=== PATIENT | male | born 1945 | race African-American/Black ===

== ENCOUNTER 2020-08-16 11:28 | Observation (INO) | payer MEDICARE, OTHER ==
--- NOTE | 2020-08-16 12:00 | RAD ---
EXAM: CHEST TWO VIEWS 08/16/2020 11:58 AM HISTORY: Intermittent chest pain COMPARISON: None. FINDINGS: Lungs: No acute airspace consolidation. Heart: Normal in size and contour. Pulmonary Vessels: Normal. Costophrenic Angles: Clear. Pneumothorax: None. Osseous Structures: Intact. Additional Findings: None. IMPRESSION: No significant acute intrathoracic disease.
[2020-08-16 12:40] LABS: #Lymphocytes 2.1 thou/uL (1.20-3.40); #Monocytes 0.7 thou/uL (0.11-0.59); #Neutrophils 4.3 thou/uL (1.40-6.50); %Basophils 0.4 % (0.0-1.0); %Eosinophils 0.3 % (0.0-10.0); %Lymphocytes 29.6 % (21.0-51.0); %Monocytes 9.2 % (0.0-10.0); %Neutrophils 60.6 % (42.0-75.0); Hemoglobin 14.6 g/dL (14.0-18.0); Mean Corpuscular HGB CONC 33.5 g/dL (32.0-36.0); Mean Corpuscular Hemoglobin 28.9 pg (27.0-31.0); Mean Corpuscular Volume 86.4 fL (78.0-98.0); Mean Platelet Volume 10.7 fL (7.4-10.4); Platelet Count 199 thou/uL (130-400); RBC Distribution Width 12.4 % (11.5-14.5); Red Blood Cell (RBC) Count 5.04 mill/uL (4.70-6.10); White Blood Cell (WBC) Count 7.1 thou/uL (4.8-10.8)
[2020-08-16] MEDS ORDERED: Aspirin Chewable 81 MG TAB ONE (14:13)
[2020-08-16] MEDS ORDERED: Nitroglycerin 2% Ointment 1 INCH/1 GM Packet ONE (14:13)
[2020-08-16 17:14] LABS: ALT (SGPT) 49 U/L (8-55); AST (SGOT) 72 U/L (5-34); Albumin 4.6 g/dL (3.4-4.8); Alkaline Phosphatase 87 U/L (40-110); Anion Gap 18 mmol/L (10-20); BUN (Urea Nitrogen) 21 mg/dL (8.4-25.7); Bilirubin, Total 0.6 mg/dL (0.2-1.2); Calc. Creatinine Clearance 0 mL/min (70-130); Calcium 9.6 mg/dL (7.8-10.44); Carbon Dioxide 21 mmol/L (23-31); Chloride 106 mmol/L (98-107); Globulin 5.3 g/dL (2.4-3.5); Glucose 206 mg/dL (83-110); Protein, Total 9.9 g/dL (5.8-8.1); Sodium 138 mmol/L (136-145)
[2020-08-16 17:19] LABS: Potassium 6.7 mmol/L (3.5-5.1)
[2020-08-16] MEDS ORDERED: Insulin Regular 300 UNITS/3 ML VIAL ONE (17:40)
[2020-08-16] MEDS ORDERED: Calcium Gluc 4.6 MEQ/10 ML (100 MG/ML) ONE (17:40)
[2020-08-16] MEDS ORDERED: Amlodipine 5 MG TAB ONE (17:40)
[2020-08-16] MEDS ORDERED: Sodium Bicarb 50 MEQ/50 ML Abboject 8.4% SYRINGE ONE (17:40)
[2020-08-16] MEDS ORDERED: Dextrose 50% Abboject 50 ML SYRINGE ONE (17:40)
[2020-08-16] MEDS ORDERED: Losartan 25 MG TAB PO SCH (17:45)
[2020-08-16] MEDS ORDERED: Atorvastatin Calcium 20 MG TAB PO SCH (18:00)
[2020-08-16] MEDS ORDERED: glipiZIDE 5 MG TAB PO SCH (18:00)
--- NOTE | 2020-08-16 18:18 | PDOC.HHP ---
Hospitalist HPI - History of Present Illness Chest pain History of Present Illness: PCP: Dr. Gonzalez The patient is a 75-year-old male with a past medical history significant for CAD, HTN, HLD, DM 2, GERD and PTSD that presents to emergency department for the above complaint. Patient reports having chest pain for approximately the last 6 months. He reports that the chest pain is located midsternal, described as uncomfortable, like a pinch, intermittent, exacerbated relieved by nothing. He reports over the past week or two, the pain has become more persistent. He has had the pain while driving in his car and even sitting down in his house. Denies heart palpitations, lightheadedness or swelling to his lower extremities. Denies shortness of breath, wheezing, history of COPD/asthma, or DVT/PE. Also, the patient reports abdominal distention and discomfort with associated nausea, vomiting and diarrhea. Reports that the nausea, vomiting and diarrhea has been going on over the past week. He describes the abdominal distention and discomfort as uncomfortable, with episodic right flank pain, described as sharp, exacerbated and relieved by nothing.. He has vomited several times, denies any hemoptysis/hematemesis. He reports having soft, slightly formed stools with intermittent bouts of diarrhea. Denies any hematochezia/melena. He reports that his last colonoscopy was done greater than 5 years ago and was unremarkable. He reports having concentrated yellow urine, however, he reports drinking a lot of water daily. He denies any dysuria or hematuria. He denies any recent fever or chills. No known sick contacts. No known Covid contacts. He denies any loss of smell or taste. ED Course: VITAL SIGNS SatAug 16, 2020 11:29 JEFFRY Carrasco Dannette BP: 155/85, Pulse: 71, Resp: 18, Temp: 98.2 (Oral), Pain: 1, O2 sat: 100 on (Room Air), Time: 08/16/2020 11:29. VITAL SIGNS SatAug 16, 2020 12:07 JEFFRY Monge Margaret BP: 152/84, Pulse: 72, Resp: 16, Temp: 98.2 (Oral), Pain: 0, O2 sat: 99% on (Room Air), Time: 08/16/2020 12:07. VITAL SIGNS SatAug 16, 2020 14:28 JEFFRY Lemon Daylee BP: 167/84, Pulse: 73, Resp: 15, Pain: 0, O2 sat: 99 on (Room Air), Time: 08/16/2020 14:28. VITAL SIGNS SatAug 16, 2020 15:50 JEFFRY Lemon Daylee BP: 140/112, Pulse: 69, Resp: 16, Pain: 0, O2 sat: 99 on (Room Air), Time: 08/16/2020 15:50. Medications: SPS (with sorbitol) oral 30 g Oral Ordered 17:58 08/16/2020 venlafaxine 225 mg Oral Acknowledged 17:41 08/16/2020 glipiZIDE 5 mg Oral Acknowledged 17:41 08/16/2020 losartan 50 mg Oral Acknowledged 17:41 08/16/2020 atorvastatin 20 mg Oral Acknowledged 17:41 08/16/2020 amLODIPine 5 mg Oral Given 17:55 08/16/2020 dextrose 50 % in water (D50W) 2 amp(s) IV Push Given 17:54 08/16/2020 sodium bicarbonate intravenous 1 amp(s) IV Push Given 17:54 08/16/2020 NovoLIN R Regular U-100 Insuln 10 units IV Push Given 17:53 08/16/2020 calcium gluconate intravenous 1000 mg IV Push Given 17:52 08/16/2020 Nitro-Bid transdermal 1 inch Topical Given 14:27 08/16/2020 aspirin oral 324 mg Oral Given 14:26 08/16/2020 Hospitalist ROS - Review of Systems All other systems reviewed; all pertinent +/- noted in HPI/Subj - Medication Medications: prazosin SatAug 16, 2020 12:11 JEFFRY Monge Margaret capsule : Strength - 2 mg : ORAL Patient Dose: 2 mg Oral once a day (at bedtime). venlafaxine SatAug 16, 2020 12:12 JEFFRY Monge Margaret tablet extended release 24hr : Strength - 225 mg : ORAL Patient Dose: 225 mg Oral once a day (in the morning). glipiZIDE SatAug 16, 2020 12:12 JEFFRY Monge Margaret tablet : Strength - 5 mg : ORAL Patient Dose: 5 mg Oral 2 times a day (before meals). metFORMIN SatAug 16, 2020 12:13 JEFFRY Monge Margaret tablet : Strength - 1,000 mg : ORAL Patient Dose: 1,000 mg Oral 2 times a day. Epi E-Z Pen SatAug 16, 2020 12:14 JEFFRY Monge Margaret auto-injector : Strength - 0.3 mg/0.3 mL : INJECTION Patient Dose: 0.3 mL Intramuscular As Needed. gabapentin SatAug 16, 2020 12:14 JEFFRY Monge Margaret tablet : Strength - 600 mg : ORAL Patient Dose: 600 mg Oral 3 times a day. losartan SatAug 16, 2020 12:16 JEFFRY Monge Margaret tablet : Strength - 50 mg : ORAL Patient Dose: 50 mg Oral once a day. amLODIPine SatAug 16, 2020 12:17 JEFFRY Monge Margaret tablet : Strength - 5 mg : ORAL Patient Dose: 5 mg Oral once a day. atorvastatin SatAug 16, 2020 12:17 JEFFRY Monge Margaret tablet : Strength - 20 mg : ORAL Patient Dose: 20 mg Oral once a day (at bedtime). folic acid oral SatAug 16, 2020 12:18 JEFFRY Monge Margaret tablet : Strength - 1 mg : ORAL Patient Dose: 1 mg Oral once a day. isosorbide mononitrate SatAug 16, 2020 12:19 JEFFRY Monge Margaret tablet extended release 24 hr : Strength - 60 mg : ORAL Patient Dose: 60 mg Oral once a day. True Metrix Glucose Test Strip SatAug 16, 2020 12:19 JEFFRY Monge Margaret strip : MISCELLANEOUS Patient Dose: Unknown. cholecalciferol (vitamin D3) oral SatAug 16, 2020 12:28 JEFFRY Monge Margaret capsule : Strength - 2,000 unit : ORAL Patient Dose: 2000u-50 mcg Oral once a day.Cholecalciferol (50 mcg) -- D3 Vitamin (2,000 units) TABS. donepezil SatAug 16, 2020 12:29 JEFFRY Monge Margaret tablet : Strength - 10 mg : ORAL Patient Dose: 10 mg Oral once a day. TRUEplus Lancets SatAug 16, 2020 12:30 JEFFRY Monge Margaret [facility] [place] : Strength - 33 gauge : MISCELLANEOUS Patient Dose: Unknown. Therapeutic Multivit/Mineral tablet Tue Aug 16, 2020 12:31 JEFFRY Monge Margaret tablet : ORAL Patient Dose: 1 tab(s) Oral once a day. 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 negative: ill appearing Eye: anicteric sclera ENT: normocephalic atraumatic Neck: supple, no lymphadenopathy, no carotid bruit Heart: RRR, no murmur, no gallops, no rubs, normal peripheral pulses Respiratory: CTAB, no wheezes, no rales, no ronchi, normal chest expansion, no tachypnea Gastrointestinal: soft, non-tender, normal bowel sounds, no guarding, no rigidity, distended Gastrointestinal - other findings: Negative Busch sign, negative Rovsing sign Extremities: no cyanosis, no edema Skin: no rashes Neurological: cranial nerve grossly intact, no focal deficits Musculoskeletal: normal tone, normal strength Psychiatric: normal affect, A&O x 3 Hospitalist Results - Labs Result Diagrams: 08/16/20 12:11 08/16/20 18:46 Lab results: WBC 7.1 thou/uL (4.8-10.8) 08/16/20 12:11 Hgb 14.6 g/dL (14.0-18.0) 08/16/20 12:11 Hct 43.5 % (42.0-52.0) 08/16/20 12:11 MCV 86.4 fL (78.0-98.0) 08/16/20 12:11 Plt Count 199 thou/uL (130-400) 08/16/20 12:11 Neutrophils % 60.6 % (42.0-75.0) 08/16/20 12:11 Sodium 138 mmol/L (136-145) 08/16/20 13:19 Potassium 6.7 mmol/L (3.5-5.1) H* 08/16/20 13:19 Chloride 106 mmol/L (98-107) 08/16/20 13:19 Carbon Dioxide 21 mmol/L (23-31) L 08/16/20 13:19 Creatinine 1.29 mg/dL (0.7-1.3) 08/16/20 13:19 Glucose 206 mg/dL (83-110) H 08/16/20 13:19 Calcium 9.6 mg/dL (7.8-10.44) 08/16/20 13:19 Total Bilirubin 0.6 mg/dL (0.2-1.2) 08/16/20 13:19 AST 72 U/L (5-34) H 08/16/20 13:19 ALT 49 U/L (8-55) 08/16/20 13:19 Alkaline Phosphatase 87 U/L (40-110) 08/16/20 13:19 Troponin I Less than 0.010 ng/mL (< 0.028) 08/16/20 12:11 Serum Total Protein 9.9 g/dL (5.8-8.1) H 08/16/20 13:19 Albumin 4.6 g/dL (3.4-4.8) 08/16/20 13:19 - EKG Interpretation EK lead EKG interpreted by Emergency Department Physician at time of study, Sinus rhythm with first-degree AV block with premature atrial complexes. Rate of 65. Normal ST segments normal T waves - Radiology Interpretation Chest x-ray Status: report reviewed by me Additional Comment: IMPRESSION: No significant acute intrathoracic disease. Hospitalist H&P A/P - Problem (1) Unstable angina Status: Acute (2) Hyperkalemia Code(s): E87.5 - HYPERKALEMIA Status: Acute (3) Abdominal distention Code(s): R14.0 - ABDOMINAL DISTENSION (GASEOUS) Status: Acute (4) DM2 (diabetes mellitus, type 2) Status: Chronic Qualifiers: Diabetes mellitus terminal clerk insulin use: without intermediate use (5) HTN (hypertension) Code(s): I10 - ESSENTIAL (PRIMARY) HYPERTENSION Status: Chronic (6) HLD (hyperlipidemia) Code(s): E78.5 - HYPERLIPIDEMIA, UNSPECIFIED Status: Chronic (7) Peripheral neuropathy Code(s): G62.9 - POLYNEUROPATHY, UNSPECIFIED Status: Chronic (8) PTSD (post-traumatic stress disorder) Code(s): F43.10 - POST-TRAUMATIC STRESS DISORDER, UNSPECIFIED Status: Chronic - Plan Plan: A patient with CAD presents for unstable angina x6 months. EKG normal sinus rhythm first-degree AV block PACs CXR no acute process Troponin negative Potassium 6.7 with creatinine 1.29, GFR 66 #Unstable angina Heart score 6, Wells PE score [address] Rahman Last echocardiogram/stress test 08/2018 Previous cardiac cath several years ago.-Medical management Trend troponins, check FLP, TSH, mag Continue aspirin, nitro paste start statin, beta-terrance Consult cardiology N.p.o. at midnight #Hyperkalemia Presented K6.7, no significant EKG changes. Given calcium gluconate, bicarb, insulin, D50 and sorbitol Recheck BMP with second troponin. #Abdominal distention/pain Reports formed and loose stools with associated N/V. No abdominal surgical history. No CVAT. Eating dinner during examination. Order KUB, check lipase. AST 72, mild elevation Recheck CMP in am #DM2 Presented BG 206 Hold home dose glipizide and Metformin. Moderate ISS. Accu-Cheks AC at bedtime. #HTN Presented mildly hypertensive. Did not take home medications this morning. Given home medications in ER. Restart prazosin, losartan, amlodipine, isosorbide mononitrate #Hyperlipidemia Restart home dose atorvastatin Check FLP #Peripheral neuropathy Restart home dose gabapentin #PTSD Denies SI/HI Restart home dose of venlafaxine. #Memory loss Restart home dose donepezil. SCDs for DVT prophylaxis. Protonix for GI prophylaxis. CODE STATUS is full code. Discussed the case with attending physician, Dr. Mejia, who agrees with plan of care.
[2020-08-16] MEDS ORDERED: Nitroglycerin 0.4 MG TAB (25 Tab Bottle) SL PRN (18:41)
[2020-08-16] MEDS ORDERED: Dextrose 5% in Water 1,000 ML IV PRN (18:46)
[2020-08-16] MEDS ORDERED: Dextrose 50% Abboject 50 ML SYRINGE SLOW IVP PRN (18:46)
[2020-08-16] MEDS ORDERED: HumaLOG 300 UNITS/3 ML VIAL SC PRN ×2 (18:46)
[2020-08-16] MEDS ORDERED: Calcium Carbonate 500 MG ChewTAB PO PRN (18:52)
[2020-08-16] MEDS ORDERED: Ondansetron ODT 4 MG TAB PO PRN (18:52)
[2020-08-16] MEDS ORDERED: Acetaminophen 325 MG TAB PO PRN (18:52)
[2020-08-16] MEDS ORDERED: Senokot S 8.6-50 MG TAB PO PRN (18:52)
[2020-08-16] MEDS ORDERED: Bisacodyl 5 MG TAB PO PRN (18:52)
[2020-08-16 19:20] LABS: Troponin I Less than 0.010 ng/mL (< 0.028)
--- NOTE | 2020-08-16 19:36 | RAD ---
KUB: 08/16/20 HISTORY: Abdominal distention, diarrhea. The bowel gas pattern is nonobstructed. There is an approximately 8 to 9 mm calculus overlying the mi d portion of the right kidney. There are mild arthritic changes of the spine. IMPRESSION: Right renal calculus. POS: OFF
[2020-08-16] MEDS ORDERED: HumaLOG 300 UNITS/3 ML VIAL ONE (19:37)
[2020-08-16 21:24] LABS: Chloride 103 mmol/L (98-107); Potassium 4.2 mmol/L (3.5-5.1); Sodium 139 mmol/L (136-145)
[2020-08-16 21:25] LABS: Calcium 10.6 mg/dL (7.8-10.44); Glucose 354 mg/dL (83-110)
[2020-08-16 21:27] LABS: Anion Gap 18 mmol/L (10-20); Carbon Dioxide 22 mmol/L (23-31)
[2020-08-16 21:29] LABS: Calc. Creatinine Clearance 0 mL/min (70-130)
[2020-08-16 21:30] LABS: BUN (Urea Nitrogen) 20 mg/dL (8.4-25.7)
[2020-08-16 21:31] LABS: Magnesium 1.7 mg/dL (1.6-2.6)
[2020-08-16 21:32] LABS: Lipase 107 U/L (8-78)
[2020-08-16 22:38] LABS: Troponin I Less than 0.010 ng/mL (< 0.028)
[2020-08-17] MEDS: Nitroglycerin 2% Ointment 1 INCH/1 GM Packet TOP SCH ×2 (00:58→06:51)
[2020-08-17 01:53] VITALS: BMI 29.7
[2020-08-17] MEDS ORDERED: Magnesium 2 GM/50 ML 2 GM in Premix Bag 1 BAG IVPB SCH (04:00)
[2020-08-17 05:25] LABS: #Lymphocytes 1.7 thou/uL (1.20-3.40); #Monocytes 0.7 thou/uL (0.11-0.59); #Neutrophils 4.5 thou/uL (1.40-6.50); %Basophils 0.7 % (0.0-1.0); %Eosinophils 0.4 % (0.0-10.0); %Lymphocytes 24.6 % (21.0-51.0); %Monocytes 10.2 % (0.0-10.0); %Neutrophils 64.1 % (42.0-75.0); Hemoglobin 13.5 g/dL (14.0-18.0); Mean Corpuscular HGB CONC 32.7 g/dL (32.0-36.0); Mean Corpuscular Volume 85.4 fL (78.0-98.0); Mean Platelet Volume 8.3 fL (7.4-10.4); Platelet Count 181 thou/uL (130-400); RBC Distribution Width 12.2 % (11.5-14.5); Red Blood Cell (RBC) Count 4.83 mill/uL (4.70-6.10)
[2020-08-17 05:48] LABS: ALT (SGPT) 43 U/L (8-55); AST (SGOT) 36 U/L (5-34); Albumin 4.2 g/dL (3.4-4.8); Alkaline Phosphatase 85 U/L (40-110); Anion Gap 15 mmol/L (10-20); BUN (Urea Nitrogen) 19 mg/dL (8.4-25.7); Bilirubin, Total 0.5 mg/dL (0.2-1.2); Calc. Creatinine Clearance 87 mL/min (70-130); Calcium 9.5 mg/dL (7.8-10.44); Carbon Dioxide 24 mmol/L (23-31); Cardiac Risk 3.2 (Less than 4.5); Chloride 107 mmol/L (98-107); Cholesterol 142 mg/dl (< 200 Desired); Globulin 3.4 g/dL (2.4-3.5); Glucose 183 mg/dL (83-110); HDL Cholesterol 45 mg/dL (>60 Neg Risk); LDL Cholesterol, Calculated 82 mg/dL; Potassium 3.9 mmol/L (3.5-5.1); Protein, Total 7.6 g/dL (5.8-8.1); Sodium 142 mmol/L (136-145); Triglycerides 77 mg/dL (Less than 150)
[2020-08-17 07:44] LABS: Bacteria/HPF None Seen HPF (None Seen); Bilirubin Negative (Negative); Blood, Urine Negative (Negative); Clarity Clear (Clear); Glucose, Urine (Dipstick) 70 mg/dL (Negative); Ketone, Urine Negative (Negative); Leukocyte 25 Leu/uL (Negative); Nitrite Negative (Negative); Protein, Urine (Dipstick) 20 mg/dL (Neg-Trace); RBC/HPF 0-3 HPF (0-3); Specific Gravity, Urine 1.027 (1.002-1.036); Squamous Epithelial 0-3 HPF (0-3); Urobilinogen Normal mg/dL (Less than 2); pH, Urine 5.5 (5.0-9.0)
[2020-08-17] MEDS ORDERED: Carvedilol 3.125 MG TAB PO SCH (08:00)
[2020-08-17 08:36] LABS: Sperm/HPF 1+ HPF (None Seen)
[2020-08-17] MEDS ORDERED: Aspirin Chewable 81 MG TAB PO SCH (09:00)
--- NOTE | 2020-08-17 09:43 | CON ---
DATE OF CONSULTATION: REASON FOR CONSULTATION: Atypical chest pain. PRIMARY MINE PATROL: Dr. Klaus Rahman. HISTORY OF PRESENT ILLNESS: Mr. Neumann is a 75-year-old gentleman with past history of CAD, although ill-defined, who states he has had nausea with no vomiting over the last several weeks. He then has had chest pain x1 episode. He has also complained of a right upper quadrant pain. His CKs and troponins have been negative. EKG does not show significant ST-T wave changes to suggest unstable angina. PAST MEDICAL HISTORY: CAD (ill-defined), hypertension, hyperlipidemia, diabetes mellitus, acid reflux, PTSD. PAST SURGICAL HISTORY: None. FAMILY HISTORY: None. SOCIAL HISTORY: No current tobacco or alcohol use. HOME MEDICATIONS: Include: 1. Prazosin. 2. Venlafaxine. 3. Glipizide. 4. Metformin. 5. Gabapentin. 6. Amlodipine. 7. Atorvastatin. 8. Folic acid. 9. Isosorbide. 10. Vitamin D3. ALLERGIES: PENICILLIN. REVIEW OF SYSTEMS: A 10-point review of systems is reviewed and is as above, negative. PHYSICAL EXAMINATION: GENERAL: Patient is a pleasant male, who is in no acute distress. The patient appears their stated age. VITAL SIGNS: Blood pressure 153/82, pulse 81, and temperature 98. NEUROLOGIC: The patient is alert and oriented x3 with no focal neurologic deficits. HEENT: Sclerae without icterus. Mouth has moist mucous membranes with normal pallor. NECK: No JVD. Carotid upstroke brisk. No bruits bilaterally. LUNGS: Clear to auscultation with unlabored respirations. BACK: No scoliosis or kyphosis. CARDIAC: Regular rate and rhythm with normal S1 and S2. No S3 or S4 noted. No significant rubs, murmurs, thrills, or gallops noted throughout the precordium. PMI is not displaced. There is no parasternal heave. ABDOMEN: Soft, nontender, nondistended. No peritoneal signs present. No hepatosplenomegaly. No abnormal striae. EXTREMITIES: 2+ femoral and 2+ dorsalis pedis pulses. No cyanosis, clubbing, or edema. SKIN: No gross abnormalities. PERTINENT LABORATORY DATA: Hemoglobin 13.5, platelet count 181. Creatinine 1.1. CK and troponin negative. BNP less than 10. IMPRESSION: 1. Atypical chest pain. 2. Nausea. 3. Right upper quadrant pain. RECOMMENDATIONS: Mr. Neumann's symptoms more strongly suggest gallbladder for nephrolithiasis. I discussed cholangiography versus conservative therapy. We would recommend a more conservative approach based on his atypical symptoms. He agreed. Recommend noninvasive stress study. If positive, we will consider angiogram. I discussed the procedure in full detail with Mr. Neumann. Risks include, but not limited to the following: , stroke, NE, need for emergency surgery, loss of limb, bleeding, and infection, as well as a reaction to the dye causing kidney failure and needing long-term dialysis. I also discussed the risks of PCI to include all of the above including coronary dissection and perforation in addition to acute stent thrombosis and restenosis. All questions about the procedure were answered. Given the above, the patient agreed to proceed with coronary angiography and possible PCI. All questions were answered. Given the above, the patient agreed to proceed above procedure if there are issues with stress study. Job ID: [id number]
--- NOTE | 2020-08-17 10:34 | ULT ---
EXAM: US Gallbladder RUQ CLINICAL HISTORY: Right upper quadrant pain. Nausea.. COMPARISON: None. FINDINGS: Pancreas: The head and proximal pancreatic body have a normal echotexture. The remainder of the pancreas is obs cured by bowel gas. Liver:Heterogeneous echotexture of the liver may be due to hepatic steatosis or hepatocellular diseas e. Subsequent limited evaluation for hepatic masses and intrahepatic biliary dilatation. Right hepatic lobe: 17.7 cm Gallbladder: No sonographic evidence of cholelithiasis, gallbladder wall thickening or pericholecysti c fluid. Busch's sign:Negative Portal Vein: Patent. Appropriate directional flow Bile ducts: 0.48 cm common bile diameter Right kidney: No hydronephrosis. Right kidney measures 13.0 cm in length. Multiple anechoic foci in the pelvis compatible with parapelvic cysts. Largest cyst measures 3.5 x 2.8 x 4.3 cm. There is echogenicity within the right renal cortex which may represent a nonobstructing calculus. IMPRESSION: 1. Multiple right renal cysts. 2. Possible nonobstructing right renal calculus. 3. Heterogeneous echotexture of the liver which may be due to hepatic steatosis or hepatocellular dis ease. Transcribed Date/Time: 08/17/2020 10:58 AM
--- NOTE | 2020-08-17 11:12 | NM ---
EXAM: NM Cardiac Stress W EF WF PROVIDED CLINICAL HISTORY: Chest pain COMPARISON: None RADIOPHARMACEUTICAL: 33 millicuries technetium 99m labeled sestamibi IV stress 10.3 millicuries technetium 99m labeled sestamibi IV rest FINDINGS: There is normal, homogeneous distribution of radiotracer throughout the left ventricular myocardium. Gated data demonstrate normal myocardial wall motion and thickening with calculated LVEF 42%. Calculated TID is 0.96. IMPRESSION: 1. No scintigraphic evidence for ischemia. 2. Calculated LVEF 42%.
[2020-08-17 11:41] VITALS: BP 153/82; TEMP 97.7
[2020-08-17] MEDS ORDERED: ADENOSINE 60 MG/20 ML VIAL ONE (12:18)
--- NOTE | 2020-08-17 20:17 | PDOC.DS.DS ---
Provider - Provider Date of Admission: 08/16/20 18:29 Date of Discharge: 08/17/20 Admitting Provider: Ana Mjeia MD Consultations: Cardiology Primary Care Physician: Nathanael Gonzalez, Course - Hospital Course Hospital Course: Patient is a 75-year-old male with coronary artery disease, hypertension and diabetes mellitus type 2 presented to the emergency room with chest discomfort on 08/16. Please refer to the history and physical for further details. Patient was admitted to the hospital with a diagnosis of chest discomfort rule out acute coronary syndrome. He was monitored in the telemetry unit. His serial troponins remain negative. Patient was evaluated by cardiology Dr. Blackmon. He underwent right upper quadrant ultrasound that was negative for acute findings. It showed hepatic steatosis with multiple right renal cyst and possible nonobstructing right renal calculus. He underwent a Cardiolite stress test that was negative for reversible ischemia. Ejection fraction was 42%. Again he declined cardiac catheterization and will follow up with his primary quality control expert as outpatient. He was advised to repeat a basic metabolic profile after 1 week. A sublingual nitroglycerin was provided. Beta-blockers were added per cardiology. He appears stable for discharge. Final diagnosis: Chest discomfortacute coronary syndrome ruled out #2 hyperkalemia with potassium of 6.7 on admission resolved. His potassium at discharge was 3.9 Hypertension Diabetes mellitus type 2 Hepatic steatosis Possible nonobstructing right renal calculus Multiple right renal cyst Ejection fraction of 42% on the stress testprimary care physician advised to follow CKD stage II Nausearesolved Peripheral neuropathy PTSD Penicillin allergy Resuscitation Status: 08/16/20 18:52 Resuscitation Status Routine Co-Sign Provider: Resuscitation Status: FULL: Full Resuscitation Discussed with: patient - Labs Lab Results: 08/17/20 05:06 08/17/20 05:06 Abnormal Lab Results - Last 48 hrs 08/16/20 12:11: MPV 10.7 H, Monocytes # 0.7 H 08/16/20 13:19: Potassium 6.7 H*, Carbon Dioxide 21 L, AST 72 H, Serum Total Protein 9.9 H, Globulin 5.3 H, Albumin/Globulin Ratio 0.9 L 08/16/20 18:46: Carbon Dioxide 22 L, Calcium 10.6 H, Lipase 107 H 08/17/20 05:06: AST 36 H 08/17/20 05:06: Hgb 13.5 L, Hct 41.2 L, Monocytes % 10.2 H, Monocytes # 0.7 H 08/17/20 06:45: Urine Glucose (UA) 70 A, Ur Leukocyte Esterase 25 A, Urine WBC 4-6 A - Physical Exam Vitals: Vital Signs (12 hours) Temp Pulse Resp BP Pulse Ox 08/17/20 11:40 97.7 F 82 16 153/82 H 100 Weight Weight 225 lb 11.2 oz Physical Exam: The patient was seen and examined on the day of discharge. Plan - Discharge Medications Prescriptions: Nitroglycerin [Nitrostat] 0.4 mg SL Q5MIN PRN #25 tab PRN Reason: Chest Pain Carvedilol [Coreg] 3.125 mg PO BID-WM #60 tab Pantoprazole [Protonix] 40 mg PO DAILY #30 tab Home Medications: Medication Instructions Recorded Confirmed Type Amlodipine [Norvasc] 5 mg PO DAILY PRN #0 08/17/20 08/17/20 Rx Atorvastatin Calcium [Lipitor] 20 mg PO DAILY 08/17/20 08/17/20 History Carvedilol [Coreg] 3.125 mg PO BID-WM #60 tab 08/17/20 Rx Cholecalciferol (Vitamin D3) 50 mcg PO DAILY 08/17/20 08/17/20 History [Vitamin D3] Donepezil HCl [Aricept] 10 mg PO DAILY 08/17/20 08/17/20 History Folic Acid [Folvite] 1 mg PO DAILY 08/17/20 08/17/20 History Gabapentin [Neurontin] 600 mg PO TID 08/17/20 08/17/20 History Isosorbide Mononitrate [Imdur] 60 mg PO DAILY 08/17/20 08/17/20 History Losartan Potassium [Cozaar] 50 mg PO DAILY 08/17/20 08/17/20 History Nitroglycerin [Nitrostat] 0.4 mg SL Q5MIN PRN #25 tab 08/17/20 Rx Pantoprazole [Protonix] 40 mg PO DAILY #30 tab 08/17/20 Rx Prazosin HCl 2 mg PO DAILY 08/17/20 08/17/20 History Venlafaxine HCl [Venlafaxine HCl 225 mg PO DAILY 08/17/20 08/17/20 History ER] glipiZIDE [Glipizide] 5 mg PO DAILY 08/17/20 08/17/20 History metFORMIN HCl [Metformin HCl] 1,000 mg PO BID 08/17/20 08/17/20 History Allergies: Penicillins Allergy (Verified 08/17/20 01:25) PER PICIS - Discharge Instructions Discharge Instructions:: BMP after 1 week - PCP to arrange/follow - Follow up Plan Referrals: Nathanael Gonzalez MD [Primary Care Provider] - 7 Days Disposition: HOME Quality - Care Measures CORE MEASURES:: N/A
[2020-08-18 08:42] LABS: SARS-CoV-2 PCR by NAA Not Detected (NotDetected)
--- NOTE | 2020-09-03 16:41 | EKG ---
Test Reason : Blood Pressure : / mmHG Vent. Rate : 065 BPM Atrial Rate : 065 BPM P-R Int : 214 ms QRS Dur : 106 ms QT Int : 364 ms P-R-T Axes : 052 018 029 degrees QTc Int : 378 ms Sinus rhythm with 1st degree A-V block with Premature atrial complexes Cannot rule out Anterior infarct , age undetermined Abnormal ECG Confirmed by TIM CERON, BROOKE Marques ([id number]), copy editor KAI VITALE ([id number]) on 09/03/2020 4:40:49 PM Referred By: Confirmed By:BROOKE DUMONT MD
== END 2020-08-17 13:16 | disposition home or self-care (01) ==
LOC: ERS 11:28 → ERHOLD 18:29 → 2SE 22:53
PROVIDERS: ADMIT Internal Medicine; ATTEND Internal Medicine
DX: I25.110 Atherosclerotic heart disease of native coronary artery with unstable angina pectoris (principal); E87.5 Hyperkalemia; R14.0 Abdominal distension (gaseous); E11.42 Type 2 diabetes mellitus with diabetic polyneuropathy; I10 Essential (primary) hypertension; E78.5 Hyperlipidemia, unspecified; K21.9 Gastro-esophageal reflux disease without esophagitis; F43.10 Post-traumatic stress disorder, unspecified; R41.3 Other amnesia; N28.1 Cyst of kidney, acquired; N20.0 Calculus of kidney; Z79.84 Long term (current) use of oral hypoglycemic drugs; Z79.899 Other long term (current) drug therapy; Z88.0 Allergy status to penicillin; Z20.822 Contact with and (suspected) exposure to COVID-19
CPT/HCPCS: 71046; 74018; 76705; 78452; 80048; 80053; 80061; 81001; 82962 ×2; 83690; 83735; 83880; 84484 ×2; 85025; 93005; 93017; 94760; 96374; 96375; 99285; A9500; U0003; U0005; 36415; 36416; 84443; 87635; 96365; G0378; J0153; J1815; J2001; J3475